=== PATIENT | female | born 2000 | race Caucasian/White ===

== ENCOUNTER 2019-09-10 18:41 | Emergency (ER) | payer BC, MEDICAID ==
--- NOTE | 2019-09-10 18:55 | Emergency Department Record ---
History of Present Illness - General Chief complaint: complication Stated complaint: /BLEEDING Time Seen by Provider: 09/10/19 18:44 Source: Patient Mode of Arrival: Ambulatory Limitations: No limitations Travel/Exposure to [place] Within 21 Days of Symptoms: No - History of Present Illness Initial comments: 19 yo female at approximately 10 weeks gestation presents to ED for evaluation of vaginal bleeding and cramping symptoms that began this evening. Patient reports that she has not been evaluated by an OB during this , has not undergone US of the pelvis. Patient denies health problems at her baseline, and denies previously diagnosed bleeding disorder. MD Complaint: Vaginal bleeding Onset/Timin -: Days(s) Location: Pelvis Severity: Moderate Quality: Cramping Consistency: Constant Improves with: None Worsens with: None Associated symptoms: Denies other symptoms Vaginal bleeding: Heavy No complications Miscarriage - Related Data : 2 Para: 0 Review of Systems Constitutional: Denies: Chills, Fever, Malaise, Night sweats Eyes: Denies: Eye discharge, Eye pain ENT: Denies: Congestion, Ear pain, Epistaxis Respiratory: Denies: Cough, Dyspnea Cardiovascular: Denies: Chest pain, Dyspnea on exertion Endocrine: Denies: Fatigue, Heat or cold intolerance Gastrointestinal: Reports: Abdominal pain. Denies: Nausea, Vomiting Genitourinary: Reports: Other (Vaginal bleeding symptoms). Denies: Incontinence, Retention Musculoskeletal: Denies: Arthralgia, Back pain, Gout Skin: Denies: Bruising, Change in color Neurological: Denies: Abnormal gait, Confusion, Seizure Psychiatric: Denies: Anxiety Hematological/Lymphatic: Denies: Anemia, Blood Clots Physical Exam - General General Appearance: Alert, Oriented x3, Cooperative, Mild distress Limitations: No limitations - Head Head exam: Atraumatic, Normocephalic, Normal inspection Head exam detail: negative: Abrasion, Contusion, Weems's sign, General tenderness, Hematoma, Laceration - Eye Eye exam: Normal appearance. negative: Conjunctival injection, Periorbital swelling, Periorbital tenderness, Scleral icterus - ENT Ear exam: negative: Auricular hematoma, Auricular trauma Nasal Exam: negative: Active bleeding, Discharge, Dried blood, Foreign body Mouth exam: negative: Drooling, Laceration, Muffled voice, Tongue elevation - Neck Neck exam: Normal inspection. negative: Meningismus, Tenderness - Respiratory Respiratory exam: Normal lung sounds bilaterally. negative: Rales, Respiratory distress, Rhonchi, Stridor - Cardiovascular Cardiovascular Exam: Regular rate, Normal rhythm, Normal heart sounds - GI/Abdominal GI/Abdominal exam: Soft. negative: Rebound, Rigid, Tenderness - Rectal Rectal exam: Deferred - exam: Deferred - Extremities Extremities exam: Normal inspection. negative: Pedal edema, Tenderness - Back Back exam: Denies: CVA tenderness (R), CVA tenderness (L) - Neurological Neurological exam: Alert, Normal gait, Oriented X3 - Psychiatric Psychiatric exam: Normal affect, Normal mood - Skin Skin exam: Normal color. negative: Abrasion Type of lesion: negative: abrasion Course - Reevaluation(s) Reevaluation #1: 09/10/19 18:51 [facility] call was contacted for transfer to obtain US of the pelvis to exclude ectopic as the source of the patient's vaginal bleeding. Reevaluation #2: 09/10/19 18:[address] Case was discussed with Dr[address] Kelley, will accept transfer for evaluation. Disposition Disposition: Transfer Clinical Impression: Vaginal bleeding in patient at less than 20 weeks gestation Disposition: Acute Care Hospital Transfer Transfer To: [facility] Reason For Transfer: US pelvis Accepting Physician: Warren Time Discussed w/Accepting Physician: 19:00 Condition: (2) Stable Forms: Patient Portal Access Time of Disposition: 19:00 Quality - Quality Measures Quality Measures: N/A - Blood Pressure Screening Does Patient Have Any of the Following: No Blood Pressure Classification: Hypertensive Reading Systolic Measurement: 136 Diastolic Measurement: 97 Screening for High Blood Pressure: < First Hypertensive BP, F/U Documented > [G8950] First Hypertensive Follow-up Interventions: Referral to alternative/primary care provider.
== END 2019-09-10 19:18 | disposition short-term general hospital (02) ==
LOC: ER 18:41
DX: O46.91 Antepartum hemorrhage, unspecified, first trimester (principal); Z3A.10 10 weeks gestation of pregnancy
CPT/HCPCS: 99284